=== PATIENT | male | born 1995 | race African-American/Black ===

== ENCOUNTER 2020-07-14 18:06 | Emergency (ER) | payer OTHER ==
[2020-07-15] MEDS ORDERED: ACETAMINOPHEN 500 MG TAB ONE (02:11)
--- NOTE | 2020-07-15 04:15 | ER ---
Nurse's Notes [facility] Name: Edwin Alexandra Age: 24 yrs Sex: Male : 1995 Arrival Date: 07/14/2020 Time: 18:13 Bed 23 Private MD: Diagnosis: Thoracic Back Pain, Strain;Lumbar Back Pain, Strain Presentation: 07/14 18:19 Chief complaint: Patient states: Mid and low back pain since after pulling ll1 heavy rope at work. No trauma or falls. Coronavirus screen: Client denies travel out of the [place] in the last 14 days. At this time, the client does not indicate any symptoms associated with coronavirus-19. Ebola Screen: Patient denies travel to an Ebola-affected area in the 21 days before illness onset. Initial Sepsis Screen: Does the patient meet any 2 criteria? No. Patient's initial sepsis screen is negative. Does the patient have a suspected source of infection? No. Patient's initial sepsis screen is negative. Risk Assessment: Do you want to hurt yourself or someone else? Patient reports no desire to harm self or others. Onset of symptoms was July 12, 2020. 18:19 Method Of Arrival: Ambulatory ll1 18:19 Acuity: ABDIRAHMAN 4 ll1 Triage Assessment: 18:23 General: Appears uncomfortable, Behavior is calm, cooperative, appropriate for age. ll1 General: Gait steady.. Pain: Complains of pain in mid and low back Quality of pain is described as aching, Aggravated by increased activity. Neuro: No deficits noted. Cardiovascular: No deficits noted. Respiratory: No deficits noted. Musculoskeletal: Circulation, motion, and sensation intact. Capillary refill < 3 seconds, Range of motion: intact in all extremities, Reports pain in mid and low back. Historical: - Allergies: 18:22 No Known Allergies; ll1 - PMHx: 18:22 None; ll1 - PSHx: 18:22 R ankle sx, L shoulder sx, kidney stone sx; ll1 - Immunization history:: Client reports having NOT received the Covid vaccine. Flu vaccine is not up to date. - Social history:: Smoking status: Patient reports the use of cigarette tobacco products, smokes one pack cigarettes per day. Screenin/25 01:23 Abuse screen: Denies threats or abuse. Nutritional screening: No deficits noted. bb Tuberculosis screening: No symptoms or risk factors identified. Fall Risk None identified. Assessment: 01:23 General: Appears in no apparent distress. Behavior is calm, cooperative. Pain: bb Complains of pain in back. Neuro: Level of Consciousness is awake, alert, obeys commands. Cardiovascular: No deficits noted. Respiratory: Airway is patent Respiratory effort is even, unlabored, Respiratory pattern is regular. GI: No signs and/or symptoms were reported involving the gastrointestinal system. Derm: Skin is dry, Skin is normal, Skin temperature is warm. Musculoskeletal: Circulation, motion, and sensation intact. 03:49 Reassessment: Patient and/or family updated on plan of care and expected duration. Pain bb level reassessed. Patient is alert, oriented x 3, equal unlabored respirations, skin warm/dry/pink. pt awaiting diagnostic results. 04:35 Reassessment: Patient is alert, oriented x 3, equal unlabored respirations, skin bb warm/dry/pink. pt verbalized understanding of and agrees to plan of care discharge instructions given pt ambulated with steady gait to exit accompanied by coworker. Vital Signs: 07/14 18:19 BP 147 / 88; Pulse 100; Resp 18; Temp 97.6; Pulse Ox 98% ; Weight 176.9 kg; Height 6 ll1 ft. 2 in. (187.96 cm); Pain 8/10; 07/15 01:20 BP 113 / 75; Pulse 71; Resp 20; Temp 98.2(O); Pulse Ox 99% on R/A; tt3 03:15 BP 134 / 99; Pulse 66; Resp 20; Pulse Ox 100% on R/A; tt3 04:36 BP 133 / 87; Pulse 66; Resp 16 S; Temp 98.5(O); Pulse Ox 98% on R/A; bb 07/14 18:19 Body Mass Index 50.07 (176.90 kg, 187.96 cm) 1 ED Course: 07/14 18:13 Patient arrived in ED. mr 18:21 Triage completed. 1 18:22 Arm band placed on. 1 07/15 01:22 Martin Ahn MD is Attending Physician. [facility] 01:23 Patient has correct armband on for positive identification. Bed in low position. Call bb light in reach. 02:42 CT Thoracic Spine Wo Cont In Process Unspecified. EDMS 02:42 CT Lumbar Spine Wo Con In Process Unspecified. EDMS 04:36 No provider procedures requiring assistance completed. IV discontinued. bb Administered Medications: 01:54 Drug: Tylenol 1000 mg Route: PO; mg2 03:00 Follow up: Response: No adverse reaction bb Outcome: 04:14 Discharge ordered by . go 04:37 Discharged to home ambulatory, with friend. bb 04:37 Condition: stable 04:37 Discharge instructions given to patient, Instructed on discharge instructions, follow up and referral plans. Demonstrated understanding of instructions, follow-up care. 04:37 Patient left the ED. bb Signatures: Dispatcher [employer] EDNJ Ruth Willson Brenda RN RN bb Ridge Biggs RN RN mg2 Kate Paulson RN RN ll1 Martin Ahn MD MD 7 Osmany Tesfaye tt3
--- NOTE | 2020-07-15 04:15 | EDPHYS ---
Physician Documentation [facility] Name: Edwin Alexandra Age: 24 yrs Sex: Male : 1995 Arrival Date: 07/14/2020 Time: 18:13 Bed 23 Private MD: ED Physician Martin Ahn HPI: 07/15 02:32 This 24 yrs old Black Male presents to ER via Ambulatory with complaints of Back Pain. mh7 02:32 The patient presents with pain that is acute, and an injury. The symptoms are located mh7 in the thoracic area and lumbar area. Onset: The symptoms/episode began/occurred 3 day(s) ago. The pain does not radiate. Associated signs and symptoms: Pertinent negatives: abdominal pain, chest pain, constipation, dysuria, fever, headache, hematuria, incontinence, nausea, numbness, tingling, urinary retention, vomiting, weakness. The problem was sustained when lifting heavy object. Modifying factors: The patient symptoms are alleviated by nothing, the patient symptoms are aggravated by movement, standing. Severity of symptoms: At their worst the symptoms were moderate, yesterday, in the emergency department the symptoms are unchanged. Historical: - Allergies: 07/14 18:22 No Known Allergies; ll1 - PMHx: 18:22 None; ll1 - PSHx: 18:22 R ankle sx, L shoulder sx, kidney stone sx; ll1 - Immunization history:: Client reports having NOT received the Covid vaccine. Flu vaccine is not up to date. - Social history:: Smoking status: Patient reports the use of cigarette tobacco products, smokes one pack cigarettes per day. ROS: 07/15 02:32 Constitutional: Negative for fever, chills, and weight loss, Eyes: Negative for injury, mh7 pain, redness, and discharge, ENT: Negative for injury, pain, and discharge, Neck: Negative for injury, pain, and swelling, Cardiovascular: Negative for chest pain, palpitations, and edema, Respiratory: Negative for shortness of breath, cough, wheezing, and pleuritic chest pain, Abdomen/GI: Negative for abdominal pain, nausea, vomiting, diarrhea, and constipation, : Negative for injury, bleeding, discharge, and swelling, MS/Extremity: Negative for injury and deformity, Skin: Negative for injury, rash, and discoloration, Neuro: Negative for headache, weakness, numbness, tingling, and seizure, Psych: Negative for depression, anxiety, suicide ideation, homicidal ideation, and hallucinations, Allergy/Immunology: Negative for hives, rash, and allergies, Endocrine: Negative for neck swelling, polydipsia, polyuria, polyphagia, and marked weight changes, Hematologic/Lymphatic: Negative for swollen nodes, abnormal bleeding, and unusual bruising. Exam: 02:32 Constitutional: This is a well developed, well nourished patient who is awake, alert, mh7 and in no acute distress. Head/Face: Normocephalic, atraumatic. Eyes: Pupils equal round and reactive to light, extra-ocular motions intact. Lids and lashes normal. Conjunctiva and sclera are non-icteric and not injected. Cornea within normal limits. Periorbital areas with no swelling, redness, or edema. Neck: Trachea midline, no thyromegaly or masses palpated, and no cervical lymphadenopathy. Supple, full range of motion without nuchal rigidity, or vertebral point tenderness. No Meningismus. Chest/axilla: Normal chest wall appearance and motion. Nontender with no deformity. No lesions are appreciated. Cardiovascular: Regular rate and rhythm with a normal S1 and S2. No gallops, murmurs, or rubs. Normal PMI, no JVD. No pulse deficits. Respiratory: Lungs have equal breath sounds bilaterally, clear to auscultation and percussion. No rales, rhonchi or wheezes noted. No increased work of breathing, no retractions or nasal flaring. Abdomen/GI: Soft, non-tender, with normal bowel sounds. No distension or tympany. No guarding or rebound. No evidence of tenderness throughout. 02:32 Skin: Warm, dry with normal turgor. Normal color with no rashes, no lesions, and no evidence of cellulitis. MS/ Extremity: Pulses equal, no cyanosis. Neurovascular intact. Full, normal range of motion. Neuro: Awake and alert, GCS 15, oriented to person, place, time, and situation. Cranial nerves II-XII grossly intact. Motor strength 5/5 in all extremities. Sensory grossly intact. Cerebellar exam normal. Normal gait. Psych: Awake, alert, with orientation to person, place and time. Behavior, mood, and affect are within normal limits. 02:32 Back: pain, that is moderate, of the thoracic area and lumbar area, ROM is painful, with flexion, normal spinal alignment noted, CVA tenderness, is absent, muscle spasm, is appreciated in the lumbar area and thoracic area, Straight leg raises: of both lower extremities does not illicit pain. Vital Signs: 07/14 18:19 BP 147 / 88; Pulse 100; Resp 18; Temp 97.6; Pulse Ox 98% ; Weight 176.9 kg; Height 6 ll1 ft. 2 in. (187.96 cm); Pain 8/10; 07/15 01:20 BP 113 / 75; Pulse 71; Resp 20; Temp 98.2(O); Pulse Ox 99% on R/A; tt3 03:15 BP 134 / 99; Pulse 66; Resp 20; Pulse Ox 100% on R/A; tt3 04:36 BP 133 / 87; Pulse 66; Resp 16 S; Temp 98.5(O); Pulse Ox 98% on R/A; bb 07/14 18:19 Body Mass Index 50.07 (176.90 kg, 187.96 cm) ll1 MDM: 04:12 Differential diagnosis: arthritis, chronic back pain, Fracture Osteoarthritis ruptured mh7 disc, vertebral fracture. Data reviewed: vital signs, nurses notes, radiologic studies, CT scan. Data interpreted: Pulse oximetry: on room air is 100 %. Interpretation: normal. Counseling: I had a detailed discussion with the patient and/or guardian regarding: the historical points, exam findings, and any diagnostic results supporting the discharge/admit diagnosis, the presence of at least one elevated blood pressure reading (>120/80) during this emergency department visit, radiology results, the need for outpatient follow up. Response to treatment: the patient's symptoms have markedly improved after treatment. 04:14 Patient medically screened. mh7 07/15 01:36 Order name: CT Thoracic Spine Wo Cont mh7 07/15 01:36 Order name: CT Lumbar Spine Wo Con mh7 Administered Medications: 01:54 Drug: Tylenol 1000 mg Route: PO; mg2 03:00 Follow up: Response: No adverse reaction bb Disposition: 07/15/20 04:14 Discharged to Home. Impression: Thoracic Back Pain, Strain, Lumbar Back Pain, Strain. - Condition is Stable. - Discharge Instructions: Back Injury Prevention, [id number], Back Pain, Adult, [id number], Back Exercises, [id number]. - Medication Reconciliation Form, Thank You Letter, Antibiotic Education, Prescription Opioid Use form. - Follow up: Private Physician; When: 1 - 2 days; Reason: Worsening of condition, Recheck today's complaints, Continuance of care, Re-evaluation by your physician. - Problem is new. - Symptoms have improved. Signatures: Dispatcher [employer] EDCaryl Messina RN RN bb Ridge Biggs RN RN mg2 Kate Paulson RN RN ll1 Martin Ahn MD MD mh7 Corrections: (The following items were deleted from the chart) 04:37 04:14 07/15/2020 04:14 Discharged to Home. Impression: Thoracic Back Pain, Strain; bb Lumbar Back Pain, Strain. Condition is Stable. Forms are Medication Reconciliation Form, Thank You Letter, Antibiotic Education, Prescription Opioid Use. Follow up: Private Physician; When: 1 - 2 days; Reason: Worsening of condition, Recheck today's complaints, Continuance of care, Re-evaluation by your physician. Problem is new. Symptoms have improved. mh7
[2020-07-15 04:49] VITALS: BP 133/87; TEMP 98.5; O2SAT 98
--- NOTE | 2020-07-16 10:16 | RAD REPORT ---
EXAM DESCRIPTION: CTThoracic Spine W/o Cont07/15/2020 6:11 am CLINICAL HISTORY: Injury;Pain TECHNIQUE: Contiguous axial CT images obtained through the thoracic spine without IV contrast. Coron al and sagittal reformatted images also provided. This exam was performed according to our departmental dose-optimization program, which includes autom ated exposure control, adjustment of the mA and/or kV according to patient size and/or use of iterati ve reconstruction technique. COMPARISON: None available for comparison FINDINGS: Vertebra: Remote T7, T8, T9 compression deformities. No acute fracture or subluxation. Disc spaces: Intervertebral disc spaces are fairly well maintained. No canal stenosis. Soft tissues: Unremarkable Lungs: Clear EXAM DESCRIPTION: CT LUMBAR SPINE WITHOUT IV CONTRAST (accession [id number]) CLINICAL HISTORY: Injury;Pain TECHNIQUE: Contiguous axial CT images obtained through the lumbar spine is IV contrast. Coronal and sagittal reformatted images also provided. This exam was performed according to our departmental dose-optimization program, which includes autom ated exposure control, adjustment of the mA and/or kV according to patient size and/or use of iterati ve reconstruction technique. COMPARISON: None available for comparison FINDINGS: Vertebra: No acute fracture or subluxation. Disc spaces: Intervertebral disc spaces are fairly well maintained. Mild multilevel broad-based disc bulges. No critical canal stenosis. Soft tissues: Unremarkable IMPRESSION: T-SPINE CT: No acute injury. L-SPINE CT: No acute injury. Electronically signed by: Josh Gage MD 07/15/2020 3:18 AM CDT Due to temporary technical issues with the PACS/Fluency reporting system, reports are being signed by the in house radiologist without review as a courtesy to ensure prompt reporting. The interpreting r adiologist is fully responsible for the content of the report.
--- NOTE | 2020-07-16 10:18 | RAD REPORT ---
EXAM DESCRIPTION: CTSpine Lumbar Wo Con07/15/2020 6:11 am CLINICAL HISTORY: Injury;Pain TECHNIQUE: Contiguous axial CT images obtained through the thoracic spine without IV contrast. Coron al and sagittal reformatted images also provided. This exam was performed according to our departmental dose-optimization program, which includes autom ated exposure control, adjustment of the mA and/or kV according to patient size and/or use of iterati ve reconstruction technique. COMPARISON: None available for comparison FINDINGS: Vertebra: Remote T7, T8, T9 compression deformities. No acute fracture or subluxation. Disc spaces: Intervertebral disc spaces are fairly well maintained. No canal stenosis. Soft tissues: Unremarkable Lungs: Clear TECHNIQUE: CT LUMBAR SPINE WITHOUT IV CONTRAST (accession [id number]) CLINICAL HISTORY: Injury;Pain TECHNIQUE: Contiguous axial CT images obtained through the lumbar spine is IV contrast. Coronal and sagittal reformatted images also provided. This exam was performed according to our departmental dose-optimization program, which includes autom ated exposure control, adjustment of the mA and/or kV according to patient size and/or use of iterati ve reconstruction technique. COMPARISON: None available for comparison FINDINGS: Vertebra: No acute fracture or subluxation. Disc spaces: Intervertebral disc spaces are fairly well maintained. Mild multilevel broad-based disc bulges. No critical canal stenosis. Soft tissues: Unremarkable IMPRESSION: T-SPINE CT: No acute injury. L-SPINE CT: No acute injury. Electronically signed by: Josh Gage MD 07/15/2020 3:18 AM CDT Due to temporary technical issues with the PACS/Fluency reporting system, reports are being signed by the in house radiologist without review as a courtesy to ensure prompt reporting. The interpreting r adiologist is fully responsible for the content of the report.
== END 2020-07-15 04:37 | disposition home or self-care (01) ==
LOC: ER 18:06
DX: S39.012A Strain of muscle, fascia and tendon of lower back, initial encounter (principal); S29.012A Strain of muscle and tendon of back wall of thorax, initial encounter; X50.0XXA Overexertion from strenuous movement or load, initial encounter; Y93.89 Activity, other specified; F17.210 Nicotine dependence, cigarettes, uncomplicated
CPT/HCPCS: 72128; 72131; 99283

== ENCOUNTER 2020-07-21 10:30 | Emergency (ER) | payer OTHER ==
--- OUTSIDE RECORDS SUMMARY | 2020-07-21 10:33 | XMS REPORT | Continuity of Care Document ---
:1995 Author Organization [facility] t Address [address] [place] [address] Care Team Providers Name Role Phone Asked, Pcp Primary Care Physician Unavailable ZI Attending Clinician Unavailable Problems This patient has no known problems. Allergies, Adverse Reactions, Alerts This patient has no known allergies or adverse reactions. Social History Social Habit Start Date Stop Date Quantity Comments Source History of tobacco Cigarette Smoker [facility] use [facility] Cigarettes smoked 2019-06-27 2019-06-27 Central current (pack per 00:00:00 00:00:[address] day) - Reported Tobacco use and 2019-06-27 2019-06-27 Never used [place] exposure 00:00:00 00:00:00 [facility] Alcohol intake 2019-06-27 2019-06-27 Current drinker [place] on 00:00:00 00:00:00 of alcohol [facility] (finding) Sex Assigned At [birth year] [facility] 00:00:00 00:00:00 [facility] Smoking Status Start Date Stop Date Source Current every day smoker 2019-06-27 00:00:00 Sophia Pinto Medications Ordered Filled Start Stop Current Ordering Indication Dosage Frequency Signature Comments Components Source Medication Medication Date Date Medication? Clinician (SIG) Name Name omeprazole Yes 20mg Q.5D Take 20 mg [place] 20 mg -06 by mouth 2 Methodi tablet,anna 00:00: (two) st yed release 00 times a (DR/EC) day as needed (heartburn ). Procedures This patient has no known procedures. Plan of Care Planned Activity Planned Date Details Comments Source Future Scheduled 2020-10-21 INFLUENZA VACCINE [place] [facility] Test 00:00:00 [code = INFLUENZA VACCINE] Future Scheduled 2012 Hepatitis C [facility] Test 00:00:00 screening (procedure) [code = 074500899] Future Scheduled 2010 COVID-19 VACCINE (1) Sophia gary [facility] Test 00:00:00 [code = COVID-19 VACCINE (1)] Encounters Start End Encounter Admission Attending Care Care Encounter Source Date/Time Date/Time Type Type Clinicians Facility Department ID 2019-06-27 2019-06-27 Emergency [facility] [id number] [facility] 00:00:00 00:00:00 [facility] [address] Results This patient has no known results.
[2020-07-21] MEDS ORDERED: CYCLOBENZAPRINE 10 MG TAB ONE (11:19)
[2020-07-21] MEDS ORDERED: HYDROCODONE/APAP 10/325 TAB ONE (11:19)
[2020-07-21] MEDS ORDERED: KETOROLAC 30 MG/ML INJ ONE ×2 (11:20)
[2020-07-21] MEDS ORDERED: LIDOCAINE 4% PATCH ONE (11:20)
--- NOTE | 2020-07-21 12:19 | ER ---
Nurse's Notes [facility] Name: Edwin Alexandra Age: 24 yrs Sex: Male : 1995 Arrival Date: 07/21/2020 Time: 10:35 Bed 4 Private MD: Diagnosis: Low back pain;Muscle spasm of back Presentation: 07/21 10:37 Chief complaint: Patient states: low back pain x 3 weeks. Began after heavy lifting at work. PT had outpatient XRAY and was given ibuprofen to take and then was seen in ER and had CT scan. Was told he has a few bulging discs, but today the pain is worse. Coronavirus screen: Client denies travel out of the [place] in the last 14 days. Ebola Screen: Patient denies exposure to infectious person. Patient denies travel to an Ebola-affected area in the 21 days before illness onset. Initial Sepsis Screen: Does the patient meet any 2 criteria? No. Patient's initial sepsis screen is negative. Does the patient have a suspected source of infection? No. Patient's initial sepsis screen is negative. Risk Assessment: Do you want to hurt yourself or someone else? Patient reports no desire to harm self or others. Onset of symptoms was June 30, 2020. 10:37 Method Of Arrival: EMS: [facility] 10:37 Acuity: ABDIRAHMAN 3 ss Historical: - Allergies: 10:39 No Known Allergies; ss - Home Meds: 10:39 Nexium [Active]; ss - PMHx: 10:39 GERD; ss - PSHx: 10:39 R ankle sx, L shoulder sx, kidney stone sx; ss - Immunization history:: Adult Immunizations up to date. - Social history:: Smoking status: Patient reports the use of cigarette tobacco products, smokes one pack cigarettes per day. Patient reports use of chewing tobacco. Screenin:40 Abuse screen: Denies threats or abuse. Denies injuries from another. Nutritional ss screening: No deficits noted. Tuberculosis screening: Never had TB. Fall Risk None identified. Assessment: 10:40 Pain: Complains of pain in lumbar area Pain currently is 10 out of 10 on a pain scale. ss Quality of pain is described as aching, Pain began 3 weeks ago Is continuous, Alleviated by repositioning, Aggravated by increased activity, repositioning. 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 Full function Speech is normal, Denies dizziness. Cardiovascular: Capillary refill < 3 seconds is brisk in bilateral fingers Patient's skin is warm and dry. Respiratory: Airway is patent Respiratory effort is even, unlabored, Respiratory pattern is regular, symmetrical, Denies cough, shortness of breath labored breathing, pain with respiration, pain with cough, pain with movement. GI: Patient currently denies abdominal pain, diarrhea, nausea, vomiting. : No signs and/or symptoms were reported regarding the genitourinary system. EENT: Oral mucosa is moist. Throat is clear. Derm: Skin is intact, is healthy with good turgor, Skin is dry, Skin is pink, warm \T\ dry. normal. Musculoskeletal: Circulation, motion, and sensation intact. Swelling absent. 10:40 General: Appears uncomfortable, Behavior is calm, cooperative. 12:05 Reassessment: Patient appears in no apparent distress at this time. Patient and/or ss family updated on plan of care and expected duration. Pain level reassessed. Patient is alert, oriented x 3, equal unlabored respirations, skin warm/dry/pink. Pain decreased from 10/10 to now 4/10 Patient states feeling better. Patient states symptoms have improved. Vital Signs: 10:37 BP 142 / 58; Pulse 118; Resp 22; Temp 99.5(O); Pulse Ox 100% on R/A; Weight 190.51 kg; Height 6 ft. 2 in. (187.96 cm); Pain 10/10; 12:05 BP 127 / 63; Pulse 108; Resp 17; Pulse Ox 98% on R/A; Pain 4/10; ss 12:51 BP 102 / 71; Pulse 102; Resp 20; Pulse Ox 100% on R/A; kg 10:37 Body Mass Index 53.92 (190.51 kg, 187.96 cm) ED Course: 10:35 Patient arrived in ED. ss 10:39 Triage completed. ss 10:39 Alonzo Fernandez NP is PHCP. pm1 10:39 Ozzy Crowley MD is Attending Physician. pm1 10:39 Arm band placed on right wrist. ss 10:40 Patient has correct armband on for positive identification. Placed in gown. Bed in low ss position. Call light in reach. Side rails up X2. Pulse ox on. NIBP on. 11:07 Tiki Savage RN is Primary Nurse. ss 12:06 No provider procedures requiring assistance completed. Patient did not have IV access ss during this emergency room visit. Administered Medications: 11:08 Drug: Lidoderm 5 % (700 mg/patch) 1 patches Route: Topical; Site: affected area; ss 11:08 Drug: Flexeril (cyclobenzaprine) 10 mg Route: PO; ss 12:55 Follow up: Response: No adverse reaction; Pain is decreased kg 11:08 Drug: Mertens (HYDROcodone-acetaminophen) 10 mg-325 mg 1 tabs Route: PO; ss 12:55 Follow up: Response: No adverse reaction; Pain is decreased kg 11:13 Drug: TORadol (ketorolac) 60 mg Route: IM; Site: left gluteus; ss 12:55 Follow up: Response: No adverse reaction; Pain is decreased kg Outcome: 12:18 Discharge ordered by MD. pm1 12:51 Discharged to home ambulatory, with friend. kg 12:51 Condition: improved 12:51 Discharge instructions given to patient, friend, Instructed on discharge instructions, follow up and referral plans. Demonstrated understanding of instructions, follow-up care, medications, Prescriptions given X 4. 12:56 Patient left the ED. kg Signatures: Tiki Savage RN RN ss Alonzo Fernandez, LOSS PREVENTION OFFICER LOSS PREVENTION OFFICER pm1 Betsy Nur kg Corrections: (The following items were deleted from the chart) 10:42 10:40 General: Appears in no apparent distress. comfortable, Behavior is calm, ss cooperative, Denies fever, feeling ill, fatigue, chills, ss
--- NOTE | 2020-07-21 12:19 | EDPHYS ---
Physician Documentation [facility] Name: Edwin Alexandra Age: 24 yrs Sex: Male : 1995 Arrival Date: 07/21/2020 Time: 10:35 Bed 4 Private MD: ED Physician Ozzy Crowley HPI: 07/21 10:57 This 24 yrs old Black Male presents to ER via EMS with complaints of Back Pain. pm1 10:57 The patient presents with pain. pm1 10:57 The symptoms are located in the thoracic area and lumbar area. Onset: The pm1 symptoms/episode began/occurred 3 week(s) ago. The pain does not radiate. Associated signs and symptoms: Pertinent negatives: dysuria, fever, headache, incontinence, numbness, tingling. The problem was sustained when lifting heavy object. Modifying factors: The patient symptoms are alleviated by remaining still, the patient symptoms are aggravated by movement. Severity of symptoms: in the emergency department the symptoms are actually worse. The patient has not experienced similar symptoms in the past. The patient has been recently seen at the [facility], this week, for similar complaints CT scan was performed. Historical: - Allergies: 10:39 No Known Allergies; ss - Home Meds: 10:39 Nexium [Active]; ss - PMHx: 10:39 GERD; ss - PSHx: 10:39 R ankle sx, L shoulder sx, kidney stone sx; ss - Immunization history:: Adult Immunizations up to date. - Social history:: Smoking status: Patient reports the use of cigarette tobacco products, smokes one pack cigarettes per day. Patient reports use of chewing tobacco. ROS: 10:57 Constitutional: Negative for fever, chills, and weight loss, Cardiovascular: Negative pm1 for chest pain, palpitations, and edema, Respiratory: Negative for shortness of breath, cough, wheezing, and pleuritic chest pain, Abdomen/GI: Negative for abdominal pain, nausea, vomiting, diarrhea, and constipation. 10:57 MS/Extremity: Negative for injury and deformity, Skin: Negative for injury, rash, and discoloration, Neuro: Negative for headache, weakness, numbness, tingling, and seizure. 10:57 Back: Positive for of the thoracic area and lumbar area, Negative for radiated pain. Exam: 10:57 Constitutional: This is a well developed, well nourished patient who is awake, alert, pm1 and in no acute distress. Head/Face: Normocephalic, atraumatic. Neck: Trachea midline, no thyromegaly or masses palpated, and no cervical lymphadenopathy. Supple, full range of motion without nuchal rigidity, or vertebral point tenderness. No Meningismus. 10:57 Skin: Warm, dry with normal turgor. Normal color with no rashes, no lesions, and no evidence of cellulitis. MS/ Extremity: Pulses equal, no cyanosis. Neurovascular intact. Full, normal range of motion. 10:57 Cardiovascular: Exam negative for acute changes, Rate: normal, Rhythm: regular, Pulses: no pulse deficits are appreciated. 10:57 Respiratory: Exam negative for acute changes, respiratory distress, shortness of breath. 10:57 Abdomen/GI: Inspection: abdomen appears normal, Palpation: abdomen is soft and non-tender, in all quadrants. 10:57 Back: Exam negative for vertebral tenderness, normal spinal alignment noted, muscle spasm, is appreciated in the right subscapular area, left low back and right low back. 10:57 Neuro: Orientation: is normal, Mentation: is normal, Motor: is normal, moves all fours, strength is normal, strength is 5/5 in all extremities, strength is 5/5 in the dorsi and plantar flexion of bilateral great toes, Sensation: is normal, no obvious gross deficits. Vital Signs: 10:37 BP 142 / 58; Pulse 118; Resp 22; Temp 99.5(O); Pulse Ox 100% on R/A; Weight 190.51 kg; ss Height 6 ft. 2 in. (187.96 cm); Pain 10/10; 12:05 BP 127 / 63; Pulse 108; Resp 17; Pulse Ox 98% on R/A; Pain 4/10; ss 12:51 BP 102 / 71; Pulse 102; Resp 20; Pulse Ox 100% on R/A; kg 10:37 Body Mass Index 53.92 (190.51 kg, 187.96 cm) MDM: 10:49 Patient medically screened. pm1 12:16 Data reviewed: vital signs. Data interpreted: Pulse oximetry: on room air is 98 %. pm1 Interpretation: normal. Counseling: I had a detailed discussion with the patient and/or guardian regarding: the historical points, exam findings, and any diagnostic results supporting the discharge/admit diagnosis, the need for outpatient follow up, a family practitioner, to return to the emergency department if symptoms worsen or persist or if there are any questions or concerns that arise at home. 12:16 ED course: 06/30 pain with medications given in the ER. pm1 Administered Medications: 11:08 Drug: Lidoderm 5 % (700 mg/patch) 1 patches Route: Topical; Site: affected area; ss 11:08 Drug: Flexeril (cyclobenzaprine) 10 mg Route: PO; ss 12:55 Follow up: Response: No adverse reaction; Pain is decreased kg 11:08 Drug: [place] (HYDROcodone-acetaminophen) 10 mg-325 mg 1 tabs Route: PO; ss 12:55 Follow up: Response: No adverse reaction; Pain is decreased kg 11:13 Drug: TORadol (ketorolac) 60 mg Route: IM; Site: left gluteus; ss 12:55 Follow up: Response: No adverse reaction; Pain is decreased kg Disposition: 15:14 Co-signature as Attending Physician, Ozzy Crowley MD. rn Disposition: 07/21/20 12:18 Discharged to Home. Impression: Low back pain, Muscle spasm of back. - Condition is Stable. - Discharge Instructions: Back Pain, Adult, Muscle Cramps and Spasms. - Prescriptions for Lidoderm 5 % Topical adhesive patch,medicated - apply 1 patch by TRANSDERMAL route once daily; 15 Transdermal Patch. Tylenol- Codeine #3 300-30 mg Oral Tablet - take 2 tablets by ORAL route every 4-6 hours As needed; 20 tablet. Cyclobenzaprine 10 mg Oral Tablet - take 1 tablet by ORAL route every 8 hours As needed; 30 tablet. Diclofenac Sodium 75 mg Oral Tablet, Delayed Release (E.C.) - take 1 tablet by ORAL route 2 times per day As needed; 30 tablet. - Medication Reconciliation Form, Thank You Letter, Antibiotic Education, Prescription Opioid Use form. - Follow up: Emergency Department; When: As needed; Reason: Worsening of condition. Follow up: Private Physician; When: 2 - 3 days; Reason: Recheck today's complaints, Continuance of care, Re-evaluation by your physician. - Problem is new. - Symptoms have improved. Signatures: Ozzy Crowley MD MD rn Smirch, Shelby, RN RN ss Marinas, Patrick, [employer] pm1 Tra [place] kg Corrections: (The following items were deleted from the chart) 12:56 12:18 07/21/2020 12:18 Discharged to Home. Impression: Low back pain; Muscle spasm of kg back. Condition is Stable. Forms are Medication Reconciliation Form, Thank You Letter, Antibiotic Education, Prescription Opioid Use. Follow up: Emergency Department; When: As needed; Reason: Worsening of condition. Follow up: Private Physician; When: 2 - 3 days; Reason: Recheck today's complaints, Continuance of care, Re-evaluation by your physician. Problem is new. Symptoms have improved. pm1
[2020-07-21 13:02] VITALS: TEMP 99.5
[2020-07-21 13:05] VITALS: BP 102/71; O2SAT 100
== END 2020-07-21 12:56 | disposition home or self-care (01) ==
LOC: ER 10:30
DX: M62.830 Muscle spasm of back (principal); F17.220 Nicotine dependence, chewing tobacco, uncomplicated
CPT/HCPCS: 96372; 99284